=== PATIENT | male | born 1995 | race Caucasian/White ===

== ENCOUNTER 2023-11-05 11:33 | Emergency (ER) | payer MEDICAID ==
[~2023-11-05] VITALS: Ht 177.8 cm; Wt 85.0 kg
[2023-11-05 11:48] VITALS: TEMP 97.8
[2023-11-05] MEDS ORDERED: KEP500T PO (14:28)
[2023-11-05 14:42] VITALS: BP 124/68; PULSE 74; RESP 16; O2SAT 97
== END 2023-11-05 14:47 | disposition home or self-care (01) ==
LOC: ER 11:33
DX: Z76.0 Encounter for issue of repeat prescription (principal); R56.9 Unspecified convulsions; Z79.899 Other long term (current) drug therapy
CPT/HCPCS: 99281

== ENCOUNTER 2024-01-24 19:10 | Emergency (ER) | payer MEDICAID ==
[~2024-01-24] VITALS: Ht 177.8 cm; Wt 74.4 kg
[~2024-01-24 19:10] MED LIST: KEP500T PO
[2024-01-24 19:13] VITALS: BP 137/88; PULSE 87; RESP 16; TEMP 98.3; O2SAT 97
[2024-01-24] MEDS ORDERED: KEP500T PO (19:29)
== END 2024-01-24 19:38 | disposition home or self-care (01) ==
LOC: ER 19:10
DX: G40.909 Epilepsy, unspecified, not intractable, without status epilepticus (principal); Z76.0 Encounter for issue of repeat prescription
CPT/HCPCS: 99281

== ENCOUNTER 2024-07-14 15:40 | Emergency (ER) | payer MEDICAID ==
[~2024-07-14] VITALS: Ht 175.3 cm; Wt 72.4 kg
[2024-07-14 15:45] VITALS: BP 119/69; PULSE 69; RESP 16; TEMP 98; O2SAT 98
[2024-07-14] MEDS ORDERED: KEP500T PO (16:14)
--- NOTE | 2024-07-14 16:15 | Physician Documentation ---
HPI ~ General Chief Complaint: Medication Refill Stated Complaint: SZ MEDICATION REFILL Time Seen by MD: 16:00 Primary Medical Doctor: NONE History of Present Illness HPI Comments This 29-year-old male who has history of seizures disorder who presents requesting medication refill of his Keppra as he has moved to the area and does not have a primary care provider. Patient reports he feels otherwise well and has not had a seizure in the last five years. Medication Reconciliation Allergies: Coded Allergies: No Known Allergies (Unverified , 01/24/24) Scheduled Levetiracetam (Keppra), 1 TAB PO Q12H Levetiracetam (Keppra), 1 TAB PO Q12H Review of Systems ROS As stated above in the HPI, otherwise all systems are reviewed and negative. Physical Exam Physical Exam Vital Signs: Temperature: 98.0, Source: Temporal, Heart Rate: 69, Respiratory Rate: 16, BP: 119/69, Pulse Oximetry: 98, Weight: 72.400 Oxygen Flow Rate: 0 Physical Exam VITALS: Reviewed and as above. GENERAL: Alert, nontoxic appearing, no apparent distress. RESPIRATORY: No increased work of breathing, no respiratory distress, speaking in full clear sentences Progress Results/Orders Results/Orders Vital Signs 07/14/24 15:45 Temp 98.0 Pulse 69 Resp 16 B/P (MAP) 119/69 Pulse Ox 98 O2 Flow Rate 0 Medical Decision Making Findings This 29-year-old male who has history of seizures disorder who presented requesting medication refill of his Keppra as he has moved to the area and does not have a primary care provider, patient provided resources to find a primary care provider and prescription refilled. Patient reported no other acute symptoms or concerns and physical exam was benign. Patient is appropriate for outpatient follow up. Differential Dx:Considerations: Include: Adverse circumstances, Economic, Psychosocial, Medication refill, Medication non-compliance Departure Time of Disposition: 16:14 Disposition: 01 HOME / SELF CARE / HOMELESS Impression: Primary Impression: General medical exam Additional Impressions: Medication refill History of seizure disorder Condition: Improved Discharge Instructions: Medicine Refill at the Emergency Department Additional Instructions: I have refilled your previous Keppra prescription, please take it as previously prescribed. Follow up as soon as possible with a primary care provider for continued management of your seizure disorder and medication adjustments as needed. Please return to the emergency department for any new or worsening concerning symptoms. Referrals: NO PRIMARY CARE PROVIDER (PCP) Prescriptions Levetiracetam (Keppra) 500 Mg Tablet 1 TAB PO Q12H for 30 Days, #60 TAB 3 Refills Prov: ALINA PATIÑO 07/14/24 Education Educated: Patient Educated regarding: diagnosis, treatment, prognosis, need for follow up Signature Scribe Signature: No scribe Attestation: The note accurately reflects work and decisions made by me.MONI Landry 07/14/24 23:25 ALINA PATIÑO July 14, 2024 16:15
== END 2024-07-14 16:26 | disposition home or self-care (01) ==
LOC: ER 15:41
DX: Z00.8 Encounter for other general examination (principal); Z76.0 Encounter for issue of repeat prescription; G40.909 Epilepsy, unspecified, not intractable, without status epilepticus
CPT/HCPCS: 99281

== ENCOUNTER 2024-12-24 14:11 | Emergency (ER) | payer MEDICAID ==
[~2024-12-24] VITALS: Ht 177.8 cm; Wt 71.8 kg
[2024-12-24 14:36] VITALS: BP 116/69; PULSE 60; RESP 18; TEMP 96.9; O2SAT 98
--- NOTE | 2024-12-24 14:44 | Physician Documentation ---
HPI ~ General Chief Complaint: Medication Refill Stated Complaint: MED REQUEST Time Seen by MD: 14:37 Primary Medical Doctor: NONE History of Present Illness HPI Comments This is a 29-year-old male history of epilepsy presents requesting refill of his Keppra due to running out and not yet having establish with a primary care provider in the area. Patient reports no seizures last five years and reports no other acute symptoms or concerns. Medication Reconciliation Allergies: Coded Allergies: No Known Allergies (Unverified , 12/24/24) Scheduled Levetiracetam (Keppra), 1 TAB PO Q12H Levetiracetam (Keppra), 1 TAB PO Q12H Past Medical History Past Medical History: Seizures Review of Systems ROS As stated above in the HPI, otherwise all systems are reviewed and negative. Physical Exam Physical Exam Vital Signs: Temperature: 96.9, Source: Temporal, Heart Rate: 60, Respiratory Rate: 18, BP: 116/69, Pulse Oximetry: 98, Weight: 71.800 Oxygen Flow Rate: 0 Physical Exam VITALS: Reviewed and as above. GENERAL: Alert, nontoxic appearing, no apparent distress. RESPIRATORY: No increased work of breathing, no respiratory distress, speaking in full clear sentences Progress Results/Orders Results/Orders Vital Signs 12/24/24 14:36 Temp 96.9 Pulse 60 Resp 18 B/P (MAP) 116/69 Pulse Ox 98 O2 Flow Rate 0 Medical Decision Making Additional information obtaine: old records Findings This 29-year-old male with a history of epilepsy presented to the emergency department requesting a refill of his Keppra as he that has run out and has not had a chance to establish with a primary care in the area, patient reports no other acute symptoms or concerns and is stable on his current dosage with no seizures in the last five years. As patient is stable in his current dose I will refill medication at this dose for 30 days and direct patient to follow up as soon as possible with primary care provider. Patient has been provided return to care precautions, follow up instructions which he verbalized understanding of. Differential Dx:Considerations: Include: Adverse circumstances, Economic, Psychosocial, Medical services unavail., Medication refill, Medication non- compliance Departure Time of Disposition: 14:39 Disposition: 01 HOME / SELF CARE / HOMELESS Impression: Primary Impression: History of seizure disorder Additional Impression: Medication refill Condition: Improved Discharge Instructions: Medicine Refill at the Emergency Department Additional Instructions: I have refilled your previous Keppra prescription, please take it as previously prescribed. Follow up as soon as possible with a primary care provider for continued management of your seizure disorder and medication adjustments as needed. Please return to the emergency department for any new or worsening concerning symptoms. Referrals: NO PRIMARY CARE PROVIDER (PCP) Prescriptions Levetiracetam (Keppra) 500 Mg Tablet 1 TAB PO Q12H for 30 Days, #60 TAB 3 Refills Prov: ALINA PATIÑO 12/24/24 Education Educated: Patient Educated regarding: diagnosis, treatment, prognosis, need for follow up Signature Scribe Signature: No scribe Attestation: The note accurately reflects work and decisions made by me.MONI Landry 12/24/24 14:47 ALINA PATIÑO Dec 24, 2024 14:44
== END 2024-12-24 14:58 | disposition home or self-care (01) ==
LOC: ER 14:12
DX: G40.909 Epilepsy, unspecified, not intractable, without status epilepticus (principal); Z76.0 Encounter for issue of repeat prescription; Z79.899 Other long term (current) drug therapy
CPT/HCPCS: 99282